=== PATIENT | male | born 1945 | race Hispanic/Latino ===

== ENCOUNTER 2018-08-22 07:47 | Day surgery (SDC) | payer BC, MEDICARE ==
[~2018-08-22 07:47] MED LIST: XYLOCAINE MPF 1% INFILTRATI ONE
[2018-08-22] MEDS ORDERED: TETRACAINE 0.5% OD SCH (10:00)
[2018-08-22] MEDS: MYDRIACYL OD SCH ×3 (10:03→10:10)
[2018-08-22] MEDS: AK-Dilate OD SCH ×3 (10:03→10:09)
[2018-08-22] MEDS: VIGAMOX OD SCH ×3 (10:03→10:10)
[2018-08-22] MEDS ORDERED: XYLOCAINE MPF 1% INFILTRATI ONE (10:42)
--- NOTE | 2018-08-22 11:19 | Operative Report ---
Operative Report Operative Report: PATIENT'S NAME: DATE OF : DATE OF SURGERY: 08/22/2018 PREOPERATIVE DIAGNOSIS: Mechanical complication of intraocular lens right eye POSTOPERATIVE DIAGNOSIS: Same OPERATIVE PROCEDURE: Rotation of toric lens from 25 to 9 right eye SURGEON: Radah Foster M.D. HOOP COILER SURGEON: Elio ANESTHESIA: Monitored anesthesia care in combination with topical and intracameral anesthesia because of the established specific risk of reflux, arrhythmias, or anxiety attacks associated with ocular manipulation, as well as the difficulty of the senior network architect to manage such potentially catastrophic events while simultaneously attempting to complete the surgical procedure and was deemed necessary for the patient's safety to have an Inventory Associate present during the procedure whenever possible. An Inventory Associate was utilized to regulate the intravenous sedation of the patient so the patient was cooperative yet not asleep in order for the patient to successfully maintain fixation of the eye on the operating light of the microscope. COMPLICATIONS: [No surgical complications] No blood loss. ALLERGIES: [No known drug allergies] PROGNOSIS: Excellent INDICATIONS FOR SURGERY: The patient is undergoing surgery in the hopes of eliminating or improving these visual difficulties. PROCEDURE: After arriving at the surgery center, the patient was given topical anesthetic and dilating drops, as noted in the record. The patient was then taken into the operating room and given more anesthetic drops. The eyelids , lashes, and lid margins were scrubbed with Betadine solution, and the patient was draped. The Nurse Inventory Associate administered IV sedation and monitored the patient during the procedure. The eye was then fixated with a 0.12, and a stab incision was made in the peripheral clear cornea into the anterior chamber. This was made on my left side. Viscoelastic was next used to fill the anterior chamber. The eye was once again fixated with the 0.12 forceps and a sinkey hook was used open previous incision in clear cornea peripherally on my right hand side temporally. The anterior chamber was refilled with viscoelastic. The implant was released from ideation using viscoelastic. It was then rotated to proper axis . appeared to be well fixated. After placement of the intraocular lens, the I~and~A handpiece was placed back into the eye and used to remove the viscoelastic, including viscoelastic that was behind the optic of the intraocular lens. The anterior chamber was then filled with balanced salt solution, and hydration of the wound was used to cause swelling of the wound and more appropriate watertight closure. When the wound was found to be firm, the patient was asked to comment on how bright the light was. If there was no light perception at all or if the light was substantially dimmer than during the rest of the surgery, the amount of fluid in the eye was decompressed to lower the intraocular pressure until the patient could see the bright light again. This was done to avoid any damage or decreased blood flow to the optic nerve. MEDICATIONS APPLIED AT END OF SURGERY: One drop of Vigamox The patient was given a shield to wear at night and was instructed not to rub or push on the eye. DISCHARGE SUMMARY: The patient was released in stable condition. The patient and those with the patient were given a written sheet of postoperative instructions and counseling on any abnormal laboratory studies. The patient is to see us tomorrow for follow-up in the office and is to call immediately for any difficulties. Radha Foster M.D. Date
--- NOTE | 2018-08-22 11:20 | Short Stay Summary ---
Short Stay Documentation Date of service: 08/22/18 - Allergies and Medications Current Medications: Allergies No Known Allergies Allergy (Verified 08/22/18 09:52) Home Medications Medication Instructions Recorded Confirmed Last Taken Type Enalapril Maleate [Vasotec] 5 mg PO DAILY 08/21/18 08/21/18 Unknown History Sertraline [Zoloft] 100 mg PO QDAY 08/21/18 08/21/18 Unknown History - Brief post op/procedure progress note Date of procedure: 08/22/18 Pre-op diagnosis: mechanical complication of an intraocular lens right Post-op diagnosis: same Procedure: Rotation of toric IOL right eye Anesthesia: local Surgeon: MIHIR HAGEN Estimated blood loss: none Specimen disposition: to lab - Disposition Condition at discharge: Good - Discharge Diagnoses (1) Mechanical complication of intraocular lens Status: Resolved Qualifiers: Mechanical complication type: displacement Encounter type: initial encounter Qualified Code(s): T85.22XA - Displacement of intraocular lens, initial encounter Short Stay Discharge Plan Follow up with: IMMANUEL BARON MD [Primary Care Provider] - 7 Days
[2018-08-22 14:45] VITALS: BP 130/75
== END 2018-08-22 11:14 | disposition home or self-care (01) ==
LOC: OR 07:47
DX: T85.29XA Other mechanical complication of intraocular lens, initial encounter (principal); I10 Essential (primary) hypertension; F32.9 Major depressive disorder, single episode, unspecified; Z72.89 Other problems related to lifestyle; Z98.890 Other specified postprocedural states; Z79.899 Other long term (current) drug therapy; Z98.41 Cataract extraction status, right eye; Y83.8 Other surgical procedures as the cause of abnormal reaction of the patient, or of later complication, without mention of misadventure at the time of the procedure; Y92.89 Other specified places as the place of occurrence of the external cause